=== PATIENT | male | born 1950 | race Caucasian/White ===

== ENCOUNTER 2018-05-06 11:12 | Inpatient (IN) | payer OTHER ==
--- NOTE | 2018-05-06 12:20 | EDPHY ---
H & P Stated Complaint: abd/back pain, sent by PCP Time Seen by Provider: 05/06/18 12:20 - Personal History Current Tetanus/Diphtheria Vaccine: Yes Current Tetanus Diphtheria and Acellular Pertussis (TDAP): Yes - Medical/Surgical History Hx Asthma: No Hx Chronic Respiratory Disease: No Hx Diabetes: No Hx Cardiac Disease: No Hx Renal Disease: No Hx Cirrhosis: No Hx Alcoholism: No Hx HIV/AIDS: No Hx Splenectomy or Spleen Trauma: No Other PMH: appy, asthma, - Social History Smoking Status: Former smoker Constitutional: Initial Vital Signs Temperature (C) 37 C 05/06/18 11:23 Heart Rate 103 H 05/06/18 11:23 Respiratory Rate 16 05/06/18 11:23 Blood Pressure 128/112 H 05/06/18 11:23 O2 Sat (%) 98 05/06/18 11:23 O2 Delivery Mode Room Air Allergies/Adverse Reactions: codeine Allergy (Verified 05/06/18 14:51) Opioids - Morphine Analogues Allergy (Verified 05/06/18 14:51) Home Medications: Medication Instructions Recorded Albuterol [Proventil Inhaler HFA 1 - 2 puffs IH Q4H PRN 05/06/18 (*)] Fluticasone/Salmeter 250/50Mcg 1 puffs IH BID 05/06/18 [Advair 250/50 (*)] Venlafaxine HCl [Venlafaxine 75MG 75 mg PO BID 05/06/18 (*)] amLODIPine BESYLATE [Norvasc 10 mg 10 mg PO DAILY 05/06/18 (*)] Medical Decision Making - Diagnostics Imaging Results: Imaging Impressions Abdomen CT 05/06/18 12:31 Impression: 1. Omental caking lower abdomen to mid pelvis compatible with omental and peritoneal carcinomatosis. 2. Pancreatic tail mass with moderate narrowing of the splenic artery and occlusion of the splenic vein. 3. Multiple pulmonary nodules at the lung bases suspicious for pulmonary metastatic deposits. These are most prominent along the right and left hemidiaphragms. 4. Hypodense lesion left lobe liver medial segment as well as right lobe liver anterior segment suspicious for hepatic metastases. 5. Mild to moderate ascites. 6. Left adrenal mass that appears to represent direct extension from the pancreatic tail mass. 7. Moderate thickening associated with the mid ileum in the lower abdomen to mid pelvis without associated obstruction or ischemia. This could represent tumor infiltration versus infectious or inflammatory ileitis. Apparently, the patient does have history of Crohn's disease. Findings discussed with Dariusz Cuellar MD at 14:22 hour, 05/06/2018. Imaging: Discussed imaging studies w/ mail caller Radiologist ED Course/Re-evaluation: CHIEF COMPLAINT: Abdominal/back pain. HISTORY OF PRESENT ILLNESS: This patient is a 67 year old male with history of hypertension. He complains of abdominal and back pain worsening over the past several weeks. Three weeks ago, he was evaluated by his primary care provider, Dr. Blair, following an episode of chest tightness, shortness of breath, fatigue, and dizziness. He had an EBCT heart scan at that time which showed ascites in his upper abdomen. His abdominal pain has worsened and is now associated with vomiting. His primary doctor ordered a CT of the abdomen and pelvis, but this has been delayed due to pending insurance authorization. Today, the patient has considerable abdominal discomfort and his abdomen is hard and distended. He has been vomiting and presents for evaluation. Denies fever, current chest pain or shortness of breath. No recent trauma or illness. REVIEW OF SYSTEMS: A comprehensive 10 system review of systems is otherwise negative aside from elements mentioned in the history of present illness and medical decision making. PHYSICAL EXAM: HR, BP, O2 Sat, RR. Temp noted General Appearance: Alert, well hydrated, appropriate, and non-toxic appearing. Head: Atraumatic without scalp tenderness or obvious injury Eyes: Pupils equal, round, reactive to light and accommodation, EOMI, no trauma , no injection. Ears: Clear bilaterally, no perforation, normal landmarks Nose: Atraumatic, no rhinorrhea, clear. Throat: There is no erythema or exudates, no lesions, normal tonsils, mucus membranes moist. Neck: Supple, 2+ carotid upstroke, nontender, no lymphadenopathy. Respiratory: No retractions, no distress, no wheezes, and no accessory muscle use. Lungs are clear to auscultation bilaterally. Cardiovascular: Regular rate and rhythm, no murmurs, rubs, or gallops. Bilateral carotid, radial, dorsalis pedis, and posterior tibial pulses intact. Good capillary refill all extremities. Gastrointestinal: Generalized tenderness, particularly over the umbilical and epigastric area. Possible small umbilical hernia. Abdomen is hard, tight, distended. Musculoskeletal: Normal active ROM of all extremities, atraumatic. Neurological: Alert, appropriate, and interactive. Nonfocal neuro exam. Skin: No rashes, good turgor, no nodules on palpation. Past medical history: Hypertension Past surgical history: Noncontributory. Family history: Significant for hypertension, diabetes, CAD in first degree relatives. Social history: . at bedside. PCP Dr. Blair. Does not abuse tobacco, drugs, or alcohol. DIAGNOSTICS/PROCEDURES/CRITICAL CARE TIME: I spent a total of 40 minutes of critical care time including but not limited to obtaining history, performing a physical exam, ordering interventions and the bedside monitoring of those interventions, collecting and interpreting tests and discussion with consultants but not including time spent performing procedures. DIFFERENTIAL DIAGNOSIS: The differential diagnosis for the patient's abdominal pain included but was not limited to appendicitis, cholecystitis, hernias, testicular torsion, gastritis, and urinary tract infection. MEDICAL DECISION MAKIN67 y/o male with history of hypertension presents with abdominal pain and distension worsening over several weeks. Recent EBCT showed abdominal ascites. Plan for CT abdomen/pelvis for further evaluation. Plan for labs including CBC, chemistries, liver, lipase, coag. Reviewed patient's EBCT results from 04/29/18. Bilateral predominantly subpleural distribution noncalcified nodularity up to 9mm in diameter. Cardiomegaly with coronary artery/aortic valvular calcification. Upper abdominal ascites with is incompletely imaged, CT abdomen/pelvis recommended. WBC elevated at 17,000. 14:[address] Hull, radiolgoist. CT with multiple findings representing metastatic disease including omental caking in the lower abdomen, pancreatic mass with splenic vein occlusion, multiple pulmonary nodules, possible liver metastases, possible tumor infiltration in the ileum vs. ileitis. Mild to moderate ascites noted. See radiologist report above for further findings. Plan to consult with oncology, hospitalist service. Patient has evidence of metastatic disease with probable pancreatic primary. Plan to admit for further evaluation. 14:[address] Lomas, hospitalist. He accepts admission for probable metastatic pancreatic cancer. 14:[address] Faria, oncologist. He will consult during the patient's admission. Gastroenterology to consult as well. 15:01 Reassessed patient. Discussed imaging results. The patient reports family history of pancreatic cancer in mother who due to this at age 72. Patient denies history of Crohn's. Answered patient's questions. Discussed the plan for admission and further workup. The patient and his are amenable to this. - Data Points Laboratory Results: Laboratory Results 05/06/18 12:11 05/06/18 12:11 05/06/18 05/06/18 05/06/18 12:11 12:11 12:11 WBC 16.86 10^3/uL H 10^3/uL (3.80-9.50) RBC 6.04 10^6/uL 10^6/uL (4.40-6.38) Hgb 17.3 g/dL g/dL (13.7-17.5) Hct 50.6 % % (40.0-51.0) MCV 83.8 fL fL (81.5-99.8) MCH 28.6 pg pg (27.9-34.1) MCHC 34.2 g/dL g/dL (32.4-36.7) RDW 13.2 % % (11.5-15.2) Plt Count 268 10^3/uL 10^3/uL (150-400) MPV 11.2 fL fL (8.7-11.7) Neut % (Auto) 80.4 % H % (39.3-74.2) Lymph % (Auto) 11.2 % L % (15.0-45.0) [place] % (Auto) 6.9 % % (4.5-13.0) Eos % (Auto) 0.6 % % (0.6-7.6) Baso % (Auto) 0.4 % % (0.3-1.7) Nucleat RBC Rel Count 0.0 % % (0.0-0.2) Absolute Neuts (auto) 13.55 10^3/uL H 10^3/uL (1.70-6.50) Absolute Lymphs (auto) 1.89 10^3/uL 10^3/uL (1.00-3.00) Absolute Monos (auto) 1.17 10^3/uL H 10^3/uL (0.30-0.80) Absolute Eos (auto) 0.10 10^3/uL 10^3/uL (0.03-0.40) Absolute Basos (auto) 0.06 10^3/uL 10^3/uL (0.02-0.10) Absolute Nucleated RBC 0.00 10^3/uL 10^3/uL (0-0.01) Immature Gran % 0.5 % % (0.0-1.1) Immature Gran # 0.09 10^3/uL 10^3/uL (0.00-0.10) PT 13.9 SEC SEC (12.0-15.0) INR 1.05 (0.83-1.16) APTT 26.4 SEC SEC (23.0-38.0) Sodium 136 mEq/L mEq/L (135-145) Potassium 4.7 mEq/L mEq/L (3.3-5.0) Chloride 101 mEq/L mEq/L (97-110) Carbon Dioxide 25 mEq/l mEq/l (22-31) Anion Gap 10 mEq/L mEq/L (8-16) BUN 19 mg/dL mg/dL (7-23) Creatinine 1.0 mg/dL mg/dL (0.7-1.3) Estimated GFR > 60 Glucose 163 mg/dL H mg/dL (70-100) Calcium 9.5 mg/dL mg/dL (8.5-10.4) Total Bilirubin 1.0 mg/dL mg/dL (0.1-1.4) Conjugated Bilirubin 0.3 mg/dL mg/dL (0.0-0.5) Unconjugated Bilirubin 0.7 mg/dL mg/dL (0.0-1.1) AST 14 IU/L L IU/L (17-59) ALT 34 IU/L IU/L (21-72) Alkaline Phosphatase 130 IU/L H IU/L (38-126) Total Protein 6.7 g/dL g/dL (6.3-8.2) Albumin 3.8 g/dL g/dL (3.5-5.0) Lipase 131 IU/L IU/L (23-300) CA 19-9 Antigen 05/06/18 12:00 WBC RBC Hgb Hct MCV MCH MCHC RDW Plt Count MPV Neut % (Auto) Lymph % (Auto) [place] % (Auto) Eos % (Auto) Baso % (Auto) Nucleat RBC Rel Count Absolute Neuts (auto) Absolute Lymphs (auto) Absolute Monos (auto) Absolute Eos (auto) Absolute Basos (auto) Absolute Nucleated RBC Immature Gran % Immature Gran # PT INR APTT Sodium Potassium Chloride Carbon Dioxide Anion Gap BUN Creatinine Estimated GFR Glucose Calcium Total Bilirubin Conjugated Bilirubin Unconjugated Bilirubin AST ALT Alkaline Phosphatase Total Protein Albumin Lipase CA 19-9 Antigen Pending Departure - Departure Disposition: [facility] Inpatient Acute Clinical Impression: Metastasis of unknown primary Condition: Fair Referrals: Nic Blair MD [Primary Care Provider] - As per Instructions Report Scribed for: Dariusz Cuellar Report Scribed by: Christa Magana Date of Report: 05/06/18 Time of Report: 15:33
[2018-05-06 12:40] LABS: PLATELET COUNT 268 10^3/uL (150-400)
[2018-05-06 12:49] LABS: INR 1.05 (0.83-1.16); PROTIME(PATIENT) 13.9 SEC (12.0-15.0)
[2018-05-06] MEDS ORDERED: IOPAMIDOL (ISOVUE-300) 100 ML BTL ONE (13:04)
[2018-05-06] MEDS ORDERED: ACETAMINOPHEN 325 MG TAB PO PRN (15:34)
[2018-05-06] MEDS ORDERED: ONDANSETRON 4 MG/2 ML VIAL IVP PRN (15:34)
[2018-05-06] MEDS ORDERED: ONDANSETRON DISINTEGRATING 4 MG TAB PO PRN (15:34)
[2018-05-06] MEDS ORDERED: ALBUTEROL 60 PUFFS/8 GM MDI IH PRN (15:36)
--- NOTE | 2018-05-06 15:43 | PDGENHP ---
History and Physical - Chief Complaint abdominal pain - History of Present Illness 67yo M with asthma, HTN presents with 3 weeks of worsening abdominal pain and bloating associated with nausea but no vomiting or diarrhea. He hasn't really noted any provoking or relieving factors. No significant weight loss, melena/ hematochezia, fevers. He has had intermittent night sweats for months. Prior to his abdominal pain becoming noticeable, he had an episode of chest pain while climbing up a ladder. A CT of his coronaries was ordered by his PCP which came back with low concern for cardiac etiology; however, it did show what sounds like a pleural effusion. His PCP had then ordered an outpatient CT of his abdomen but the patient's abdominal pain became more severe so came to the ED. In the ED, a CT of his abdomen and pelvis showed a pancreatic tail mass with associated lesions in liver, lungs, and omental caking with ascites. He was informed that there is a possibility that he has pancreatic cancer. He reports that his mother passed of pancreatic cancer. He is being admitted for further diagnostic work up and pain management. History Information - Allergies/Home Medication List Allergies/Adverse Reactions: codeine Allergy (Verified 05/06/18 14:51) Opioids - Morphine Analogues Allergy (Verified 05/06/18 14:51) Home Medications: Albuterol [Proventil Inhaler HFA (*)] 1 - 2 puffs IH Q4H PRN 05/06/18 [Last Taken 05/06/18 12:00] Fluticasone/Salmeter 250/50Mcg [Advair 250/50 (*)] 1 puffs IH BID 05/06/18 [ Last Taken 05/06/18 10:00] Venlafaxine HCl [Venlafaxine 75MG (*)] 75 mg PO BID 05/06/18 [Last Taken 09:00] amLODIPine BESYLATE [Norvasc 10 mg (*)] 10 mg PO DAILY 05/06/18 [Last Taken ] I have personally reviewed and updated: family history, medical history, social history, surgical history - Past Medical History Additional medical history: hypertension, depression, asthma - Surgical History Additional surgical history: appendectomy, orthopedic procedures - Family History Additional family history: mother with pancreatic cancer (now ) - Social History Smoking Status: Former smoker (quit 27 years ago) Alcohol Use: Rarely Drug Use: None Additional social history: lives with Review of Systems Review of Systems: ROS: 10pt was reviewed & negative except for what was stated in HPI & below Physical Exam Physical Exam: Temp Pulse Resp BP Pulse Ox 36.9 C 93 18 144/91 H 97 05/06/18 14:58 05/06/18 14:58 05/06/18 14:58 05/06/18 14:58 05/06/18 14:58 Constitutional: no apparent distress, appears nourished, not in pain Eyes: PERRL, anicteric sclera, EOMI Ears, Nose, Mouth, Throat: moist mucous membranes, hearing normal, ears appear normal, no oral mucosal ulcers Cardiovascular: regular rate and rhythym, no murmur, rub, or gallop, No edema Respiratory: no respiratory distress, no rales or rhonchi, clear to auscultation Gastrointestinal: normoactive bowel sounds, tenderness, distension, No hepatosplenomegally, No guarding, No rebound Skin: warm, normal color, no rashes or abrasions, no fluctuance, no induration, No mottled Musculoskeletal: full muscle strength, no muscle tenderness, normal joint ROM, no joint effusions Neurologic: AAOx3 Psychiatric: interacting appropriately, not anxious, not encephalopathic, thought process linear Lab Data & Imaging Review 05/06/18 12:11 05/06/18 12:11 WBC 16.86 10^3/uL (3.80-9.50) H 05/06/18 12:11 RBC 6.04 10^6/uL (4.40-6.38) 05/06/18 12:11 Hgb 17.3 g/dL (13.7-17.5) 05/06/18 12:11 Hct 50.6 % (40.0-51.0) 05/06/18 12:11 MCV 83.8 fL (81.5-99.8) 05/06/18 12:11 MCH 28.6 pg (27.9-34.1) 05/06/18 12:11 MCHC 34.2 g/dL (32.4-36.7) 05/06/18 12:11 RDW 13.2 % (11.5-15.2) 05/06/18 12:11 Plt Count 268 10^3/uL (150-400) 05/06/18 12:11 MPV 11.2 fL (8.7-11.7) 05/06/18 12:11 Neut % (Auto) 80.4 % (39.3-74.2) H 05/06/18 12:11 Lymph % (Auto) 11.2 % (15.0-45.0) L 05/06/18 12:11 [place] % (Auto) 6.9 % (4.5-13.0) 05/06/18 12:11 Eos % (Auto) 0.6 % (0.6-7.6) 05/06/18 12:11 Baso % (Auto) 0.4 % (0.3-1.7) 05/06/18 12:11 Nucleat RBC Rel Count 0.0 % (0.0-0.2) 05/06/18 12:11 Absolute Neuts (auto) 13.55 10^3/uL (1.70-6.50) H 05/06/18 12:11 Absolute Lymphs (auto) 1.89 10^3/uL (1.00-3.00) 05/06/18 12:11 Absolute Monos (auto) 1.17 10^3/uL (0.30-0.80) H 05/06/18 12:11 Absolute Eos (auto) 0.10 10^3/uL (0.03-0.40) 05/06/18 12:11 Absolute Basos (auto) 0.06 10^3/uL (0.02-0.10) 05/06/18 12:11 Absolute Nucleated RBC 0.00 10^3/uL (0-0.01) 05/06/18 12:11 Immature Gran % 0.5 % (0.0-1.1) 05/06/18 12:11 Immature Gran # 0.09 10^3/uL (0.00-0.10) 05/06/18 12:11 PT 13.9 SEC (12.0-15.0) 05/06/18 12:11 INR 1.05 (0.83-1.16) 05/06/18 12:11 APTT 26.4 SEC (23.0-38.0) 05/06/18 12:11 Sodium 136 mEq/L (135-145) 05/06/18 12:11 Potassium 4.7 mEq/L (3.3-5.0) 05/06/18 12:11 Chloride 101 mEq/L (97-110) 05/06/18 12:11 Carbon Dioxide 25 mEq/l (22-31) 05/06/18 12:11 Anion Gap 10 mEq/L (8-16) 05/06/18 12:11 BUN 19 mg/dL (7-23) 05/06/18 12:11 Creatinine 1.0 mg/dL (0.7-1.3) 05/06/18 12:11 Estimated GFR > 60 05/06/18 12:11 Glucose 163 mg/dL (70-100) H 05/06/18 12:11 Calcium 9.5 mg/dL (8.5-10.4) 05/06/18 12:11 Total Bilirubin 1.0 mg/dL (0.1-1.4) 05/06/18 12:11 Conjugated Bilirubin 0.3 mg/dL (0.0-0.5) 05/06/18 12:11 Unconjugated Bilirubin 0.7 mg/dL (0.0-1.1) 05/06/18 12:11 AST 14 IU/L (17-59) L 05/06/18 12:11 ALT 34 IU/L (21-72) 05/06/18 12:11 Alkaline Phosphatase 130 IU/L (38-126) H 05/06/18 12:11 Total Protein 6.7 g/dL (6.3-8.2) 05/06/18 12:11 Albumin 3.8 g/dL (3.5-5.0) 05/06/18 12:11 Lipase 131 IU/L (23-300) 05/06/18 12:11 Assessment & Plan Assessment: 67yo M with asthma, HTN presents with 3 weeks of worsening abdominal pain and bloating found to have pancreatic mass on CT suspicious for pancreatic cancer. Plan: #Pancreatic mass: Associated with liver lesions, bilateral basilar lung nodules , adrenal mass, omental caking, ascites. Suspicious for metastatic pancreatic cancer; he does have a family history of this. - Discussed with oncology (Richie Faria) - Check CA 19-9 - IR consult for biopsy of liver lesion #Occluded splenic vein: Noted on CT - At risk for venous thrombosis. No anticoagulation for now. #Acute abdominal pain: Related to suspected malignancy - PRN oxycodone and morphine, titrate as needed #Thickened ileum: Noted on CT. Suspect tumor infiltration. He does not have history of Crohn's/UC. Not having diarrhea. #Leukocytosis: Reactive in setting of above. #HTN: Continue home amlodipine. #Depression: Continue home effexor. #Asthma: No flare, continue home inhalers. Diet: regular, NPO at midnight VTE ppx: high risk, SCDs for bx Code: full Dispo: Admit under observation for above diagnostic procedures and pain management.
--- NOTE | 2018-05-06 16:41 | ASMTCMCOM ---
CM Note CM Note Notes: Chart reviewed. 67 year old male. Patient admitted via ED after being sent by PCP for evaluation of flank pain. Per CT scan likely metastatic process. Needs TBD at this time. Plan: TBD Date Signed: 05/06/2018 04:38 PM Electronically Signed By:Brooke Ashraf RN
[2018-05-06] MEDS: oxyCODONE IR 5 MG TAB PO PRN (17:41)
[2018-05-06] MEDS ORDERED: HYDROmorphone HCL 0.5 MG/0.5 ML SYR IVP PRN (19:14)
[2018-05-06] MEDS: FLUTICASONE/SALMETER 250/50MCG DISKUS IH SCH (20:39)
[2018-05-06] MEDS: VENLAFAXINE HCL 75 MG TAB PO SCH (21:10)
[2018-05-07] MEDS ORDERED: LIDOCAINE 1% 300 MG/30 ML SDV ONE (08:17)
[2018-05-07] MEDS ORDERED: NALOXONE HCL 0.4 MG/ML INJ IVP PRN (08:34)
[2018-05-07] MEDS ORDERED: FLUMAZENIL 0.5 MG/5 ML MDV IVP PRN (08:34)
[2018-05-07] MEDS ORDERED: PROTAMINE SULFATE 50 MG/5 ML VIAL IVP PRN (08:34)
[2018-05-07] MEDS ORDERED: HEPARIN 10,000 UNIT/10 ML MDV (1,000 UNIT/ML) IVP PRN (08:34)
[2018-05-07] MEDS ORDERED: MEPERIDINE 25 MG/ML SYR IVP PRN (08:34)
[2018-05-07] MEDS ORDERED: GLUCAGON HCL 1 MG VIAL IVP PRN (08:34)
[2018-05-07] MEDS ORDERED: fentaNYL 100 MCG/2 ML INJ IVP PRN (08:34)
[2018-05-07] MEDS ORDERED: ALTEPLASE 2 MG VIAL IVP PRN (08:34)
[2018-05-07] MEDS ORDERED: ceFAZolin 2 GM/DEXTROSE 100 ML IV ONE (08:34)
[2018-05-07] MEDS ORDERED: MIDAZOLAM 2 MG/2 ML VIAL ONE (08:39)
[2018-05-07] MEDS ORDERED: FLUMAZENIL 0.5 MG/5 ML MDV IVP ONE (08:39)
[2018-05-07] MEDS ORDERED: NS 1,000 ML IV SCH (08:45)
[2018-05-07] MEDS: VENLAFAXINE HCL 75 MG TAB PO SCH ×2 (09:00→20:41)
--- NOTE | 2018-05-07 09:31 | PDHPUP ---
History & Physical Update H&P update statement: This history and physical update is based on an assessment of the patient which was completed after admission or registration (within 24 hours), but prior to the surgery/procedure. Plan for US guided biopsy with paracentesis H&P update: H&P reviewed & patient examined, no change in patient's condition since H&P completed, changes noted
--- NOTE | 2018-05-07 09:34 | PDRADPN ---
Radiology Procedure Note Date of Procedure: 05/07/18 Radiologist: Roosevelt Herring Anesthesia: IV Sedation Pre-op Diagnosis: Pancreatic mass with liver lesions Post-op Diagnosis: Pancreatic mass with liver lesions Indication: Liver mass Procedure: US guided liver lesion biopsy Finding(s): Aborted liver lesion biopsy; unable to visualize small right or left lobe lesions. Inf/Abcess present in the surg proc area at time of surgery?: No
[2018-05-07] MEDS: MIDAZOLAM 2 MG/2 ML VIAL IVP PRN (10:15)
[2018-05-07] MEDS: FLUTICASONE/SALMETER 250/50MCG DISKUS IH SCH ×2 (10:44→20:35)
[2018-05-07 12:53] LABS: PLATELET COUNT 201 10^3/uL (150-400)
--- NOTE | 2018-05-07 13:10 | PDCONSULT ---
[employer] Consultant Note: Hematology/oncology consultation note Reason for consultation: Newly diagnosed likely metastatic cancer History of present illness: Ezekiel is a very pleasant 67-year-old male with no significant past medical history who was admitted to [facility] due to worsening abdominal pain. He states that he has had ongoing intermittent abdominal pain for little over 1 month. The pain is generalized and is not postprandial. He had no changes in his bowel movements or hematochezia or melena. He has not lost any weight. Yesterday the pain became increasingly more severe and was up to a 10/10 in nature. He present to the emergency room where he had diagnostic imaging with a CT the abdomen and pelvis. The CT demonstrated a mass in the pancreatic tail measuring 6.1 x 4 cm. There is an evidence of omental caking as well. There were also lesions noted in the left lobe of the liver as well as the right lobe of liver. There is also moderate thickening in the mid ileum. He states that his pain is slightly under better control since admission. Past medical history: Hypertension, depression, asthma Past surgical history Appendectomy. Family history: Mother had pancreatic cancer in her 70s who is now . He does have 1 child in his 40s. There is no other history of cancer in the family. Social history He is a former smoker but quit 27 years ago. 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 He lives with his in [place]. Allergies: Noted in electronic medical record Medications: Noted in the electronic medical record Review of systems: A 12 point review of systems was obtained and was otherwise negative Physical examination: Temp Pulse Resp BP Pulse Ox 36.4 C 71 16 148/94 H 94 05/07/18 11:13 05/07/18 11:13 05/07/18 11:13 05/07/18 11:13 05/07/18 11:13 O2 (L/minute) 1 General: Pleasant-appearing female appears in no acute distress conversant accompanied by his . HEENT: Oropharynx is clear, extraocular movements are intact, pupils equal and reactive slightly Cardiovascular: Regular rhythm no murmurs gallops or rubs Pulmonary: Clear to auscultation bilaterally Abdomen: Soft nontender nondistended bowel sounds are present slight tenderness appreciated throughout no rebound. Extremities: No cyanosis clubbing or edema Skin: No skin lesions Lymph: No lymphadenopathy Psych: Appropriate affect Neuro: Moving all extremities WBC 12.12 10^3/uL (3.80-9.50) H 05/07/18 12:24 RBC 5.50 10^6/uL (4.40-6.38) 05/07/18 12:24 Hgb 15.8 g/dL (13.7-17.5) 05/07/18 12:24 Hct 46.3 % (40.0-51.0) 05/07/18 12:24 MCV 84.2 fL (81.5-99.8) 05/07/18 12:24 MCH 28.7 pg (27.9-34.1) 05/07/18 12:24 MCHC 34.1 g/dL (32.4-36.7) 05/07/18 12:24 RDW 13.2 % (11.5-15.2) 05/07/18 12:24 Plt Count 201 10^3/uL (150-400) 05/07/18 12:24 MPV 10.7 fL (8.7-11.7) 05/07/18 12:24 Neut % (Auto) 75.0 % (39.3-74.2) H 05/07/18 12:24 Lymph % (Auto) 16.2 % (15.0-45.0) 05/07/18 12:24 [place] % (Auto) 6.9 % (4.5-13.0) 05/07/18 12:24 Eos % (Auto) 1.2 % (0.6-7.6) 05/07/18 12:24 Baso % (Auto) 0.4 % (0.3-1.7) 05/07/18 12:24 Nucleat RBC Rel Count 0.0 % (0.0-0.2) 05/07/18 12:24 Absolute Neuts (auto) 9.09 10^3/uL (1.70-6.50) H 05/07/18 12:24 Absolute Lymphs (auto) 1.96 10^3/uL (1.00-3.00) 05/07/18 12:24 Absolute Monos (auto) 0.84 10^3/uL (0.30-0.80) H 05/07/18 12:24 Absolute Eos (auto) 0.14 10^3/uL (0.03-0.40) 05/07/18 12:24 Absolute Basos (auto) 0.05 10^3/uL (0.02-0.10) 05/07/18 12:24 Absolute Nucleated RBC 0.00 10^3/uL (0-0.01) 05/07/18 12:24 Immature Gran % 0.3 % (0.0-1.1) 05/07/18 12:24 Immature Gran # 0.04 10^3/uL (0.00-0.10) 05/07/18 12:24 PT 13.9 SEC (12.0-15.0) 05/06/18 12:11 INR 1.05 (0.83-1.16) 05/06/18 12:11 APTT 26.4 SEC (23.0-38.0) 05/06/18 12:11 Sodium 136 mEq/L (135-145) 05/06/18 12:11 Potassium 4.7 mEq/L (3.3-5.0) 05/06/18 12:11 Chloride 101 mEq/L (97-110) 05/06/18 12:11 Carbon Dioxide 25 mEq/l (22-31) 05/06/18 12:11 Anion Gap 10 mEq/L (8-16) 05/06/18 12:11 BUN 19 mg/dL (7-23) 05/06/18 12:11 Creatinine 1.0 mg/dL (0.7-1.3) 05/06/18 12:11 Estimated GFR > 60 05/06/18 12:11 Glucose 163 mg/dL (70-100) H 05/06/18 12:11 Calcium 9.5 mg/dL (8.5-10.4) 05/06/18 12:11 Total Bilirubin 1.0 mg/dL (0.1-1.4) 05/06/18 12:11 Conjugated Bilirubin 0.3 mg/dL (0.0-0.5) 05/06/18 12:11 Unconjugated Bilirubin 0.7 mg/dL (0.0-1.1) 05/06/18 12:11 AST 14 IU/L (17-59) L 05/06/18 12:11 ALT 34 IU/L (21-72) 05/06/18 12:11 Alkaline Phosphatase 130 IU/L (38-126) H 05/06/18 12:11 Total Protein 6.7 g/dL (6.3-8.2) 05/06/18 12:11 Albumin 3.8 g/dL (3.5-5.0) 05/06/18 12:11 Lipase 131 IU/L (23-300) 05/06/18 12:11 Imaging Impressions Abdomen Ultrasound 05/07/18 08:39 Impression: 1. Aborted biopsy given nonvisualization of liver lesions with ultrasound. Recommend rescheduling under CT guidance. 05/06/2018 CT abdomen pelvis with contrast demonstrates 6.0 x 4 cm mass in the pancreatic tail. There are multiple scattered nodules within the lungs. There is also an adrenal gland is enlarged at 2.1 x 1.6 cm. There also hypodensity in the liver measuring 1.5 x 1.6 cm. Assessment and plan: Ezekiel is a very pleasant 67-year-old male with no past medical history who presents today for likely metastatic cancer. 1. Presumed metastatic pancreatic cancer: I reviewed his imaging with Ezekiel and his . I explained that he has a pancreatic tail mass. We discussed that the likely etiology is pancreatic adenocarcinoma. We also discussed that a biopsy would need to be obtained to confirm his diagnosis. I have recommended biopsy of a metastatic site, if possible a liver lesion. He will not need to undergo PET/CT as an outpatient for full staging. We discussed that if it is truly metastatic pancreatic adenocarcinoma the treatment would be involved chemotherapy. The voiced understanding of this and would like to proceed with further diagnostic workup. He will follow up with Dr. Flynn Santa next week in our clinic. 2. Leukocytosis: He is not have any evidence of obstruction. He has no fevers or chills. All questions were answered. He voices understanding of the plan. A total of 60 min was spent on counseling and coordination of his care. There was greater than 50% of this spent on direct counseling with the patient and his regarding his diagnosis and further workup.
[2018-05-07] MEDS: oxyCODONE IR 5 MG TAB PO PRN ×2 (14:42→14:44)
--- NOTE | 2018-05-07 17:29 | HOSPPROG ---
Hospitalist Progress Note Assessment/Plan: Assessment: 67yo M presents with new diagnosis of likely stage IV pancreatic cancer Plan: #Likely stage IV pancreatic cancer: Acute, new diagnosis, further workup indicated. Associated with liver lesions, bilateral basilar lung nodules, adrenal mass, omental carcinamatosis, ascites -Discussed with oncology (Richie Faria), unsuccessful visualization, planning for liver CT-guided biopsy tomorrow -pain control as needed -extensive counseling provided to patient and regarding pathophysiology of ascites and preparing for outpatient f/u and considering tx options based on prognosis which will be available once pathology resulted #Occluded splenic vein: Noted on CT -At risk for venous thrombosis, but no escalation in pain, hold on anticoagulation #HTN: Continue home amlodipine. #Depression: Continue home effexor. #Asthma: No flare, continue home inhalers. Diet: regular, NPO at midnight VTE ppx: high risk, SCDs for bx Code: full Dispo: Upgrade to inpatient admission status for reasonable medical necessity including LOS > 48hrs for additional work-up needed for new stage IV malignancy including biopsy tomorrow, repeat hepatic labs Subjective: patient reports pain control adequate w/ oxy IR Objective: Vital Signs Temp Pulse Resp BP Pulse Ox 36.6 C 75 16 153/90 H 94 05/07/18 13:17 05/07/18 13:17 05/07/18 13:17 05/07/18 13:17 05/07/18 13:17 PT 13.9 SEC (12.0-15.0) 05/06/18 12:11 INR 1.05 (0.83-1.16) 05/06/18 12:11 - Time Spent With Patient Time Spent with Patient: greater than 35 minutes Time Spent with Patient: Greater than 35 minutes spent on this patients care, greater than 50% of time spent counseling, educating, and coordinating care regarding the above mentioned plan. - Physical Exam Constitutional: no apparent distress, appears nourished, uncomfortable, No not in pain (mild 3/10) Cardiovascular: regular rate and rhythym, no murmur, rub, or gallop, No edema Respiratory: no respiratory distress, no rales or rhonchi, clear to auscultation Gastrointestinal: normoactive bowel sounds, tenderness (mid-epigastric), ascites , distension (mild), No guarding Neurologic: AAOx3 Psychiatric: interacting appropriately, not anxious, not encephalopathic, thought process linear ICD10 Worksheet Patient Problems: Problems Problem Status Onset Metastasis of unknown primary Acute
--- NOTE | 2018-05-07 17:49 | PDMN ---
Medical Necessity Medical necessity: Change to inpt as of 05/07/18 @ 1318. Pt meets inpt criteria per MD order and Medical Oncology GRG. 67 y/o presented w/3 weeks of worsening abdominal pain/bloating/nausea, admitted for new diagnosis of likely stage IV pancreatic cancer w/liver lesions, bilat basilar lung nodules, adrenal mass, omental carcinamatosis, and ascites. Pt had aborted liver lesion bx today- unsuccessful visualization. Anticipate>2MN for further med nec work-up for stage IV malignancy including CT guided biopsy tomorrow.
[2018-05-08] MEDS: FLUTICASONE/SALMETER 250/50MCG DISKUS IH SCH (08:09)
[2018-05-08] MEDS: VENLAFAXINE HCL 75 MG TAB PO SCH (09:02)
[2018-05-08] MEDS ORDERED: FLUMAZENIL 0.5 MG/5 ML MDV IVP ONE (11:01)
[2018-05-08] MEDS ORDERED: NALOXONE HCL 0.4 MG/ML INJ ONE (11:01)
[2018-05-08] MEDS ORDERED: fentaNYL 100 MCG/2 ML INJ ONE (11:01)
[2018-05-08] MEDS ORDERED: MIDAZOLAM 2 MG/2 ML VIAL ONE (11:02)
[2018-05-08] MEDS ORDERED: LIDOCAINE 1% 300 MG/30 ML SDV ONE (11:52)
[2018-05-08] MEDS: MIDAZOLAM 2 MG/2 ML VIAL IVP PRN (12:58)
--- NOTE | 2018-05-08 12:59 | PDPROPOC ---
Sedation Plan of Care ASA Classification: ASA 2 Mallampati Score: Class 2 Mallampati Reference Image:
--- NOTE | 2018-05-08 13:00 | PDRADPN ---
Radiology Procedure Note Date of Procedure: 05/08/18 Radiologist: Sunday Hurt Anesthesia: IV Sedation Pre-op Diagnosis: omental caking Post-op Diagnosis: same Procedure: ct guided omental biopsy Inf/Abcess present in the surg proc area at time of surgery?: No
--- NOTE | 2018-05-08 13:06 | ASMTCMCOM ---
CM Note CM Note Notes: Patient plan of care reviewed in interdisciplinary rounds. For CT guided needle biopsy today. No need identified per CM standpoint. Has f/u scheduled with oncology 05/18/2018. CM available should needs arise. Plan: Home independently. Date Signed: 05/08/2018 12:58 PM Electronically Signed By:Brooke Ashraf RN
[2018-05-08 14:10] VITALS: BP 158/85
--- NOTE | 2018-05-08 15:03 | ASDISCHSUM ---
Discharge Information Plan Status:Home with No Needs Medically Cleared to Leave:05/08/2018 Discharge Date:05/08/2018 CM D/C Disposition:Home, Routine, Self-Care ADT D/C Disposition:Home, Routine, Self-Care Projected Discharge Date:05/08/2018 Transportation at D/C:Family Discharge Delay Reason: Follow-Up Date:05/08/2018 Discharge Slot: Final Diagnosis: Placement Information Patient Contact Information Contact Name:HERMAN Relationship: Address:[address] Work Phone: City:[facility] Phone: State/Zip Code:[place] [address] Email: Financial Information Financial Class:M2M Solution Primary Plan Desc:[facility] LOCAL Primary Plan Number:[id number] Secondary Plan Desc: Secondary Plan Number: Assessment Information LACE LACE Length of stay for Answers: 1 day current admission Comorbidities - select Answers: Any tumor (including all that apply lymphoma or leukemia) Other Notes: Chrons, HTN # of Emergency department Answers: 1-2 visits in the last 6 months Score: 5 Date Signed: 05/08/2018 02:59 PM Electronically Signed By:Brooke Ashraf RN [facility] CM Progress Note CM Note CM Note Notes: Chart reviewed. 67 year old male. Patient admitted via ED after being sent by PCP for evaluation of flank pain. Per CT scan likely metastatic process. Needs TBD at this time. Plan: TBD Date Signed: 05/06/2018 04:38 PM Electronically Signed By:Brooke Ashraf RN [facility] CM Progress Note CM Note CM Note Notes: Patient plan of care reviewed in interdisciplinary rounds. For CT guided needle biopsy today. No need identified per CM standpoint. Has f/u scheduled with oncology 05/18/2018. CM available should needs arise. Plan: Home independently. Date Signed: 05/08/2018 12:58 PM Electronically Signed By:Brooke Ashraf RN Intervention Information
[2018-05-08] MEDS ORDERED: PNEUMOC 13-VAL CONJ-DIP CRM/PF 0.5 ML SYR IM ONE (16:24)
--- NOTE | 2018-05-08 16:32 | PDDCSUM ---
Discharge Summary Discharge Summary: DISCHARGE SUMMARY FOLLOW-UP ITEMS: Omental biopsy results pending at time discharge, to be followed up by Dr. Flynn santa DATE OF ADMISSION: 05/06/2018 DATE OF DISCHARGE: 05/08/2018 DISCHARGE DIAGNOSES: 1. Likely stage IV pancreatic cancer 2. Occluded splenic vein 3. Chronic hypertension CONSULTATIONS: Oncology comma interventional radiology PROCEDURES / IMAGING: Omental biopsy, CT imaging demonstrating diffuse metastatic disease CHIEF COMPLAINT: Acute abdominal pain SUBJECTIVE: Patient is feeling well at time discharge, his pain has been well managed on oral oxycodone PHYSICAL EXAM ON DISCHARGE: Systolic blood pressure 130-150, heart rate 70, afebrile neck, satting on room air, alert awake oriented x3, abdomen is soft, mildly ascitic, nontender at the biopsy site, no erythema extending from it LABS ON DISCHARGE: White blood count 55034, creatinine 0.7, liver panel unremarkable, CA [id number] HOSPITAL COURSE BY PROBLEM: The patient presented with abdominal pain most likely secondary to stage IV pancreatic cancer, receiving a new diagnosis during this hospitalization. His CT staging demonstrated liver lesions, bilateral lung nodules, adrenal mass, omental carcinomatosis, ascites, occluded splenic vein. Most likely primary is pancreatic, and the omentum was biopsied. His hospitalization was extended secondary to being unable to obtain initial liver biopsy with ultrasound guidance. After safely obtaining his omental biopsy, the patient experienced no further complications, and he was discharged safely with as needed oral oxycodone and oral Zofran for symptomatic management. He was seen in consultation by Oncology and will establish with local [facility]. Once the tissue diagnosis is completed, the patient would like to consider all of his treatment options. Given his strong family history of GI malignancy, BRCA testing is recommended. DISCHARGE MEDICATIONS: Please see official discharge medication reconciliation sheet in chart , oxycodone immediate release 5-10 mg as needed, Zofran 4 mg as needed, continue other home medications. DISCHARGE INSTRUCTIONS: Please follow up with Dr. Flynn Santa as scheduled. TIME SPENT: Greater than 30 minutes were spent on direct patient care, as well as discharge planning and preparation.
== END 2018-05-08 16:44 | disposition home or self-care (01) | DRG 436 ==
LOC: INTOOBSV 14:22 → F1N 16:06 → OBSVTOIN 05-07 13:18
PROVIDERS: ADMIT Internal Medicine; ATTEND Internal Medicine
PROC: 0DBU3ZX Excision of Omentum, Percutaneous Approach, Diagnostic (ICD-10-PCS; principal; 2018-05-08 13:10)
DX: C25.2 Malignant neoplasm of tail of pancreas (principal); C78.6 Secondary malignant neoplasm of retroperitoneum and peritoneum; R18.8 Other ascites; I10 Essential (primary) hypertension; J45.909 Unspecified asthma, uncomplicated; Z23 Encounter for immunization; Z80.0 Family history of malignant neoplasm of digestive organs; Z87.891 Personal history of nicotine dependence
CPT/HCPCS: 86301-90; G0008; G0009; G0378; J2250; J2310; J3010; Q9967